=== PATIENT | female | born 1960 | race Caucasian/White ===

== ENCOUNTER 2016-09-21 14:36 | Emergency (ER) | payer OTHER ==
[~2016-09-21 14:36] MED LIST: BUSPAR 5MG TABLE5 MG PO; COLACE 100MG C100 MG PO; HABITROL 21 MG P1 EA TOP; K-DUR TAB 20 M20 MEQ PO; LEVAQUIN750 MG PO; MAG-OX 400 TAB400 MG PO; NEURONTIN 400400 MG PO; NORCO 5-325 TA1 EACH PO; NORCO 7.5-3251 EACH PO; PERCOCET 10-321 EACH PO; PROTONIX40 MG PO; ULTRAM50 MG PO; ZANAFLEX4 M1 PO
== END 2016-09-21 15:35 | disposition home or self-care (01) ==
LOC: ER1 14:36
DX: S93.601A Unspecified sprain of right foot, initial encounter (principal); N18.9 Chronic kidney disease, unspecified; F17.210 Nicotine dependence, cigarettes, uncomplicated; W01.0XXA Fall on same level from slipping, tripping and stumbling without subsequent striking against object, initial encounter; Y92.009 Unspecified place in unspecified non-institutional (private) residence as the place of occurrence of the external cause
CPT/HCPCS: 73630; 99283

== ENCOUNTER 2016-11-22 21:20 | Emergency (ER) | payer OTHER | END 2016-11-22 23:44 | disposition home or self-care (01) | LOC: ER1 21:20 | DX: J01.90 Acute sinusitis, unspecified (principal) | CPT/HCPCS: 99283 ==

== ENCOUNTER 2016-12-21 18:25 | Emergency (ER) | payer OTHER ==
[2016-12-21 19:23] LABS: HEMOGLOBIN 13.1 gm/dl (12.3-15.3); RED BLOOD COUNT 4.36 M/UL (4.00-5.10); WHITE BLOOD COUNT 19.1 K/UL (4.5-11.0)
[2016-12-21 21:55] LABS: BUN/CREATININE RATIO 22 (0-10)
[2016-12-22 11:47] LABS: ACINETOBACTER BAUMANNII Not Detected (Negative); CANDIDA ALBICANS Not Detected (Negative); CANDIDA KRUSEI Not Detected (Negative); CANDIDA TROPICALIS Not Detected (Negative); ENTEROCOCCUS Not Detected (Negative); ESCHERICHIA COLI Not Detected (Negative); HAEMOPHILUS INFLUENZAE Not Detected (Negative); KLEBSIELLA OXYTOCA Not Detected (Negative); KLEBSIELLA PNEUMONIAE Not Detected (Negative); KPC-CARBAPENEM-RESISTANCE GENE Not Detected (Negative); PROTEUS Not Detected (Negative); PSEUDOMONAS AERUGINOSA Not Detected (Negative); SERRATIA MARCESANS Not Detected (Negative); STAPHYLOCOCCUS DETECTED (Negative); STAPHYLOCOCCUS AUREUS DETECTED (Negative); STREP AGALACTIAE (GROUP B) Not Detected (Negative); STREP PYOGENES (GROUP A) Not Detected (Negative); STREPTOCOCCUS Not Detected (Negative); mecA (METHICILLIN RESIST GENE Not Detected (Negative); vanA/B (VANCOMYCIN RESIST GENE Not Detected (Negative)
== END 2016-12-22 00:21 ==
LOC: ER1 18:25
PROVIDERS: Emergency Medicine
DX: M54.5 Low back pain (principal); E83.42 Hypomagnesemia; E87.6 Hypokalemia; F17.200 Nicotine dependence, unspecified, uncomplicated
CPT/HCPCS: 36415; 71010; 72100; 80053; 81001; 82550; 82553; 83605; 83735; 83874; 84484; 85025; 86140; 87040; 87077; 87150; 87186; 93005; 96374; 96375; 96376; 99285; J2405; J2543; J3370; J3480; J7050